=== PATIENT | male | born 1970 | race Caucasian/White ===

== ENCOUNTER 2023-01-21 11:34 | Emergency (ER) | payer BC, SELFPAY ==
[2023-01-21] VITALS (14 sets, daily range): BP systolic 122–149; BP diastolic 85–90; PULSE 62–74; RESP 0–16; TEMP 36.8; O2SAT 94–100; BMI 34.9
--- NOTE | 2023-01-21 11:43 | ED_ITS ---
HPI - General Adult General Chief complaint: Chest Pain Stated complaint: CHEST PAIN Time Seen by Provider: 01/21/23 11:43 History of Present Illness HPI narrative: pain in the mid sternum woke the patient from sleep around 530am this morning. He rated the pain 8/10 at that time. As the day progressed the pain lessened but did not resolve. Nothing taken at home for the pain. He presented to the ED for evaluation. Currently rates the pain 2/10. Non-radiating tightness to the mid to lower sternum. No associated symptoms such as nausea, vomiting, sweating, shortness of breath, syncope or dizziness/near syncope. No burping, belching or heartburn symptoms. No recent injury to the chest. he started an exercise regimen that involves running but does not lift weight. the patient's primary care provider is Dr. Velazquez. Patient told me that about three years ago Dr. Velazquez put him on low-dose lisinopril in order to help control the patient's blood sugar - he has not taken that for several years Related Data Home Medications Medication Instructions Recorded Confirmed No Known Home Medications 01/21/23 01/21/23 Allergies Allergy/AdvReac Type Severity Reaction Status Date / Time No Known Drug Allergies Allergy Verified 01/21/23 11:48 Exam Narrative Exam Narrative: Nurses notes and vital signs reviewed and patient is not hypoxic. afebrile General: Well-appearing and in no apparent distress. Skin: Warm, dry, no pallor noted. No rash. Head: Normocephalic, atraumatic. Eye: Pupils are equal, round and EOMI. No scleral icterus. Cardiovascular: Regular Rate and Rhythm without murmur, gallop or rub. Respiratory: No accessory muscle use or respiratory distress. Lungs are clear to auscultation, no wheezing, rales or rhonchi Chest Wall: no tenderness at the area of concern. No crepitus or subcutaneous emphysema. Back: No midline thoracic or lumbar vertebral tenderness. No CVA tenderness Musculoskeletal: normal ROM, no calf or popliteal tenderness, no lower extremity edema/swelling GI: Abdomen is soft, non-distended. Normal bowel sounds. No tenderness to palpation. No rebound, guarding, or rigidity noted. Neurological: A&O x4. No cranial nerve dysfunction observed. No truncal ataxia. Moves all extremities. Sensation intact. Psychiatric: Cooperative and interactive. Normal mood and affect. Constitutional Vital Signs, click to edit/add: Last Vital Signs Temp 98.2 F 01/21/23 11:42 Pulse 64 01/21/23 13:10 Resp 14 01/21/23 13:10 BP 122/87 01/21/23 13:00 Pulse Ox 97 01/21/23 13:10 O2 Del Method Room Air 01/21/23 11:42 Course Vital Signs Vital signs: Vital Signs Pulse Oximetry 98 01/21/23 11:40 Temperature 98.2 F 01/21/23 11:42 Pulse Rate 64 01/21/23 13:10 Respiratory Rate 14 01/21/23 13:10 Blood Pressure 122/87 01/21/23 13:00 Pulse Oximetry 97 01/21/23 13:10 Oxygen Delivery Method Room Air 01/21/23 11:42 Medical Decision Making MDM Narrative Medical decision making narrative: Patient was placed on equipment monitor phototypesetting and EKG obtained. Blood drawn and sent for evaluation. chest x-ray obtained - no acute abnormality was identified. EKG is normal sinus rhythm with an incomplete bundle-branch block. The patient told me that he does not know if he had this previously. Negative workup in the ED - normal CBC and BMP, normal BNP and normal initial troponin. DDimer is negative Patient received oral aspirin and on recheck at 1235 his pain was gone until he sat up and took a deep breath. 2nd troponin obtained and was also negative HEART score: 3 Hx - 1 E - 1 A - 1 R - 0 T - 0 Patient and I discussed risk, HEART score, his symptoms and he wants to go home. I stressed the importance of ED return if he worsens. I also stressed the importance of out-patient PCP follow up for further evaluation and testing. Lab Data Lab results reviewed: Yes I reviewed the patient's lab results Labs: Lab Results 01/21/23 01/21/23 Range/Units 11:48 13:26 WBC 6.2 (4.0-11.0) 10^3/uL RBC 4.75 (4.70-6.10) 10^6/uL Hgb 14.3 (14.0-18.0) g/dL Hct 43.8 (42.0-54.0) % MCV 92.2 (80.0-94.0) fL MCH 30.1 (25.9-34.0) pg MCHC 32.6 (29.9-35.2) g/dL RDW 12.8 (11.0-15.0) % Plt Count 316 (150-450) 10^3/uL MPV 10.2 (9.5-13.5) fL Neut % (Auto) 49.2 (43.0-75.0) % Lymph % (Auto) 39.0 (20.5-60.0) % Petroleum % (Auto) 9.4 (1.7-12.0) % Eos % (Auto) 1.1 (0.9-7.0) % Baso % (Auto) 1.0 (0.2-2.0) % Neut # (Auto) 3.0 (1.4-6.5) 10^3/uL Lymph # (Auto) 2.4 (1.2-3.8) 10^3/uL Petroleum # (Auto) 0.6 (0.3-0.8) 10^3/uL Eos # (Auto) 0.1 (0.0-0.7) 10^3/uL Baso # (Auto) 0.1 (0.0-0.1) 10^3/uL Abs Immat Gran (auto) 0.02 (0.00-0.03) 10^3/uL Imm/Tot Granulo (auto) 0.3 (0.0-0.5) % D-Dimer 0.19 (<=0.59) mg/L FEU Sodium 134 L (136-145) mmol/L Potassium 3.9 (3.5-5.1) mmol/L Chloride 103 (98-107) mmol/L Carbon Dioxide 29.0 (21.0-32.0) mmol/L Anion Gap 5.9 BUN 11.0 (7.0-18.0) mg/dL Creatinine 0.84 (0.70-1.30) mg/dL Est GFR ( Amer) >60 (>=60) Est GFR (Non-Af Amer) >60 (>=60) BUN/Creatinine Ratio 13.1 Glucose 117 H (74-106) mg/dL Calcium 8.5 (8.5-10.1) mg/dL Troponin I High Sens 4.7 <4.0 L (4.0-76.1) pg/mL NT-Pro-B Natriuret Pep 19.0 (<=900.0) pg/mL Imaging Data Chest x-ray: Radiologist's impression: Patient Name: CHARLES PEREZ MRN: [id number] date: 1970 Sex: M Assigned Patient Location: ER Current Patient Location: ER Accession/Order Number: [id number] Exam Date: 01/21/2023 12:00 Report Date: 01/21/2023 12:20 At the request of: REINALDO BIRD Procedure: XR chest 1V EXAM: XR chest 1V at 1202 hours HISTORY: chest pain COMPARISON: None. TECHNIQUE: AP upright portable chest x-ray FINDINGS: The heart is at the upper limits of normal in size and the vasculature is not distended. No acute infiltrate, effusion or pneumothorax is identified. The osseous structures are grossly intact. IMPRESSION: No acute infiltrate or evidence of cardiac decompensation. Direct comparison with a previous study would be helpful in determining the chronicity of these findings. Electronically authenticated by: PACO MAZARIEGOS Date: 01/21/2023 12:20 ECG Data Interpretation: EKG interpretation: Emergency Department physician interpretation. Normal sinus rhythm at 66bpm. Incomplete RBBB. No ST segment elevation or depression. Discharge Plan Discharge Chief Complaint: Chest Pain Clinical Impression: Chest pain Patient Disposition: Home, Self-Care Time of Disposition Decision: 13:55 Prescriptions / Home Meds: No Action No Known Home Medications Instructions: Chest Pain (ED) Stand Alone Forms: Portal Instructions Referrals: KALYN VELAZQUEZ DO [Primary Care Provider] - 1 week
--- NOTE | 2023-01-21 11:56 | ECG_ITS ---
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
--- NOTE | 2023-01-21 11:56 | XR_ITS ---
The [address] [address] Patient Name: CHARLES PEREZ MRN: [id number] date: 1970 Sex: M Assigned Patient Location: ER Current Patient Location: ER Accession/Order Number: [id number] Exam Date: 01/21/2023 12:00 Report Date: 01/21/2023 12:20 At the request of: REINALDO BIRD Procedure: XR chest 1V EXAM: XR chest 1V at 1202 hours HISTORY: chest pain COMPARISON: None. TECHNIQUE: AP upright portable chest x-ray FINDINGS: The heart is at the upper limits of normal in size and the vasculature is not distended. No acute infiltrate, effusion or pneumothorax is identified. The osseous structures are grossly intact. XR/XR chest 1V IMPRESSION: No acute infiltrate or evidence of cardiac decompensation. Direct comparison with a previous study would be helpful in determining the chronicity of these findings. Electronically authenticated by: PACO MAZARIEGOS Date: 01/21/2023 12:20
[2023-01-21] MEDS: ASPIRIN 81 MG TAB.CHEW 324 MG PO (12:02)
[2023-01-21 12:07] LABS: Basophils Absolute Auto 0.1 10^3/uL (0.0-0.1); Eosinophils Absolute Auto 0.1 10^3/uL (0.0-0.7); Eosinophils Percent Auto 1.1 % (0.9-7.0); Hematocrit 43.8 % (42.0-54.0); Hemoglobin 14.3 g/dL (14.0-18.0); Immature Granulocytes Abs Auto 0.02 10^3/uL (0.00-0.03); Immature Granulocytes Pct Auto 0.3 % (0.0-0.5); Lymphocytes Absolute Auto 2.4 10^3/uL (1.2-3.8); Mean Corpuscular HGB Conc 32.6 g/dL (29.9-35.2); Mean Corpuscular Hemoglobin 30.1 pg (25.9-34.0); Mean Corpuscular Volume 92.2 fL (80.0-94.0); Mean Platelet Volume 10.2 fL (9.5-13.5); Monocytes Absolute Auto 0.6 10^3/uL (0.3-0.8); Monocytes Percent Auto 9.4 % (1.7-12.0); Neutrophils Percent Auto 49.2 % (43.0-75.0); Platelet Count 316 10^3/uL (150-450); Red Blood Count 4.75 10^6/uL (4.70-6.10); Red Cell Distribution Width 12.8 % (11.0-15.0); White Blood Count 6.2 10^3/uL (4.0-11.0)
[2023-01-21 12:27] LABS: Anion Gap 5.9; BUN Creatinine Ratio 13.1; Calcium 8.5 mg/dL (8.5-10.1); Chloride 103 mmol/L (98-107); Estimated GFR (African America >60 (>=60); Estimated GFR (Non-African Ame >60 (>=60); Glucose 117 mg/dL (74-106); Potassium 3.9 mmol/L (3.5-5.1); Sodium 134 mmol/L (136-145); Troponin I High Sensitivity 4.7 pg/mL (4.0-76.1)
[2023-01-21 12:30] LABS: D Dimer 0.19 mg/L FEU (<=0.59)
[2023-01-21 13:50] LABS: Troponin I High Sensitivity <4.0 pg/mL (4.0-76.1)
== END 2023-01-21 14:05 | disposition home or self-care (01) ==
PROVIDERS: Emergency Provider Emergency Medicine; PCP Family Medicine
DX: R07.9 Chest pain, unspecified (principal)
CPT/HCPCS: 36415; 71045; 80048; 83880; 84484; 85025; 85378; 93005; 99285

== ENCOUNTER 2023-02-02 08:40 | Outpatient (OUT) | payer BC, SELFPAY ==
--- NOTE | 2023-02-02 07:45 | NM_ITS ---
Patient: CHARLES PEREZ Exam Date: 02/02/2023 : 1970 Gender:M Ordering : DR KALYN VELAZQUEZ D.O. Admission #: [id number] Family : Order #: [id number] CLICK HERE TO VIEW EXAM RADIOLOGY REPORT PROCEDURE: NM TONYA PERF SPECT REST STR COMPARISON: None. INDICATIONS: CHEST PAIN TECHNIQUE: Exam Description: Stress/Rest one day protocol gated SPECT Rest Imagin.4 mCi Tc-99m Cardiolite IV on 02/02/2023 Stress Imaging 31.4 mCi Tc-99m Cardiolite IV on 02/02/2023 Exercise Protocol: Wil Heart Rate (bpm): Rest: 59 Max: 164 PMHR: 97 Blood Pressure: Rest: 112/78 Max: 182/84 Exercise Time: Minutes: 10 Seconds: 30 Stage Reached: Stage: 4 Mets 13.1 Symptoms: CHEST PAIN Rest and peak stress ECG findings were abnormal and the exercise portion of the study was abnormal per attending physician Dr. Mcfadden due to EKG CHANGES. For more details please see separate cardiac stress test report. FINDINGS: QUALITY OF STUDY: Good. PERFUSION DEFECT: None. LOCATION: N/A SIZE: N/A. SEVERITY: N/A. TYPE: N/A. WALL MOTION: Normal. LV SIZE: Normal. 108 mL. TID / TCD: None; 0.7 LVEF: Normal. Calculated EF 69%. SUMMARY: Myocardial perfusion imaging study is NORMAL. CONCLUSION: 1. No reversible ischemia 2. Abnormal exercise test secondary to EKG changes Dictated by: Sp Singh MD on 02/03/2023 at 14:00 Approved by: Sp Singh MD on 02/03/2023 at 14:02
--- NOTE | 2023-02-02 17:33 | P.STRESS_ITS ---
Stress Test Stress Test Allergies Allergy/AdvReac Type Severity Reaction Status Date / Time No Known Drug Allergies Allergy Verified 01/21/23 11:48 Requesting physician: KALYN VELAZQUEZ Procedure: Exercise Cardiolite stress test. General Information: Reason for Stress Test: Chest pain Cardiac History and Risk Factors: Patient chews tobacco. Unspecified cardiovascular disease in father. Resting 12 - Lead Electrocardiogram: Rate & rhythm: Normal sinus at a rate of 66. T-waves: Biphasic in III ST-segments:Normal Other findings: RBBB Stress Test: Protocol: Wil protocol was followed, with injection of Cardiolite once target heart rate was achieved. Exercise capacity: Excellent exercise capacity. Total exercise time of 10minutes 31 seconds reached Wil stage 4 at 4.2MPH, 16% grade, & 13.1 METs. Blood pressure: Initial: 112/78, Maximum: 182/84, Recovery: 138/70 Rate & rhythm: Patient remained in sinus rhythm during the exercise and recovery portions of the study.? The maximum heart rate was 164, which was 97% of the maximum predicted heart rate 169. Occasional PVCs and rare PACs noted. ST-segments & T-waves: At 10 minutes into exercise, the patient voiced mid- sternal chest tightness. EKG at this moment showed 1mm ST depression in leads V4-6. There may be ST segment depression in leads II and III as well, but there was too much artifact to affirmatively state there was. Changes did not persist into the recovery phase. Patient response/symptoms: The voiced chest pain was the same as his chief complaint. Interpretation: This is an abnormal chest pain based on 1mm ST segment depression in the lateral leads at peak exercise. Chest pain that occurred during this time was reproducible of his chief complaint. Cardiolite imaging interpretation will be reported separately. Clinical correlation required.?
== END 2023-02-02 08:41 | disposition home or self-care (01) ==
LOC: NM 08:41
PROVIDERS: PCP Family Medicine; Visit Provider Family Medicine
DX: R07.9 Chest pain, unspecified (principal)
CPT/HCPCS: 78452; 93017; A9500

== ENCOUNTER 2023-02-03 09:51 | Outpatient (OUT) | payer BC, SELFPAY ==
--- NOTE | 2023-02-03 10:56 | CA_ITS ---
Patient: CHARLES PEREZ Exam Date: 02/03/2023 : 1970 Gender:M Ordering : DR KALYN VELAZQUEZ D.O. Admission #: [id number] Family : Order #: [id number] CLICK HERE TO VIEW EXAM ECHOCARDIOGRAM REPORT PROCEDURE: CA ECHO DOPPLER COMPLETE INDICATIONS: CHEST PAIN COMPARISON: None. DESCRIPTION: COMPLETE ECHOCARDIOGRAM Real-time transthoracic echocardiography with 2D, M-mode, spectral and color flow Doppler performed. QUALITY: Technical quality was good. LEFT VENTRICLE: Normal chamber size. Mild concentric left ventricular hypertrophy. Global left ventricular systolic function is normal. LV EF: Calculated left ventricular ejection fraction is 67% DIASTOLIC: Normal diastolic function. ATRIAL SEPTUM: LEFT ATRIUM: Mild dilatation. RIGHT ATRIUM: Normal chamber size. RIGHT VENTRICLE: Normal chamber size. Normal right ventricular systolic function. TRICUSPID VALVE: Normal mobility and thickness. No stenosis with trivial regurgitation. No evidence of pulmonary hypertension. RVSP 33 mmHg MITRAL VALVE: Normal mobility and thickness. No evidence of mitral valve stenosis. There is no mitral annular calcification. Trivial mitral regurgitation. AORTIC VALVE: Normal trileaflet appearance. No visible sclerosis. Normal leaflet mobility. No evidence of aortic valve stenosis. No aortic regurgitation. AORTIC ROOT: Mildly dilated. Measuring 4.0 cm. The ascending aorta is normal in size measuring 3.2 cm. PULMONIC VALVE: Normal thickness and mobility. No stenosis. Trivial regurgitation. PERICARDIUM: No evidence of pericardial effusion. IVC: Collapses with inspirations. Normal size PLEURA: CONCLUSION: 1. Mild concentric left ventricular hypertrophy. Normal left ventricular systolic function. LVEF is 65 to 70%. 2. Normal diastolic function. 3. Normal right ventricular size and systolic function. 4. No significant valvular dysfunction. 5. Normal right-sided pressures. 6. Mildly dilated aortic root. Adult Echocardiography Procedure Report Left Ventricle LVEDD (3.7 - 5.6 cm): 4.62 cm LVESD (2.2 - 4.0 cm): 2.84 cm LVIVS thickness (0.6 - 1.2 cm): 1.28 cm LVPW thickness (0.5 - 1.0 cm): 1.17 cm e': 0.10 m/s E - e': 7.30 LVOT Max Gradient: 2.54 mm[Hg] LVOT Area (cm2): 0.80 m/s Peak Velocity (LVOT): 0.80 m/s Mean Velocity (LVOT): 0.57 m/s LVOT Diameter 2.62 cm Left Ventricular Ejection Fraction: 67.33 % Left Atrium LA Volume Index (2D A2C): 43.64 ml/m2 Left Atrium Systolic Dimension: 3.61 cm Mitral Valve MV E to A Ratio: 1.47 Mitral Valve A-Wave Peak Velocity: 0.49 m/s Mitral Valve E-Wave Peak Velocity: 0.72 m/s Right Ventricle RV Internal Diastolic Dimension: 4.05 cm Aorta AO Root Diam: 4.04 cm Ascending Ao Diam: 3.21 cm Aortic Valve AoV Area (Peak [place]): 4.95 cm2, 4.95 cm2 AoV Area (VTI): 6.04 cm2, 6.04 cm2 Peak Velocity(Antegrade Flow): 0.87 m/s Peak Gradient(Antegrade Flow): 2.99 mm[Hg] Mean Velocity(Antegrade Flow): 0.61 m/s Mean Gradient(Antegrade Flow): 1.63 mm[Hg] Velocity Time Integral: 16.85 cm Tricuspid Valve Peak Velocity (Regurgitant Flow): 2.30 m/s, 2.73 m/s, 2.55 m/s Pulmonic Valve Mean Gradient: 2.54 mm[Hg], 2.07 mm[Hg] Mean Velocity: 0.77 m/s, 0.66 m/s Peak Velocity: 0.99 m/s Peak Gradient: 4.10 mm[Hg], 3.81 mm[Hg] Right Atrium Right Atrium Systolic Pressure: 62.15 ml, 62.15 ml Dictated by: Saulo Villegas M.D. on 02/03/2023 at 19:51 Approved by: Saulo Villegas M.D. on 02/03/2023 at 19:53
== END 2023-02-03 09:52 | disposition home or self-care (01) ==
LOC: CARD 09:52
PROVIDERS: PCP Family Medicine; Visit Provider Family Medicine
DX: R07.9 Chest pain, unspecified (principal)
CPT/HCPCS: 93306